=== PATIENT | female | born 2005 | race African-American/Black ===

== ENCOUNTER 2024-09-25 12:33 | Outpatient (CLI) | payer OTHER, SELFPAY ==
--- NOTE | ~2024-09-25 | MMUS_ITS ---
EXAMINATION: MM diagnostic hailey LT w jamal, US breast LT limited HISTORY: Left breast lump TECHNIQUE: 3-D tomosynthesis images of the left breast were performed and synthetic 2-D images were g enerated. CAD analysis was submitted and interpreted. High resolution limited left breast ultrasound was performed. COMPARISON: None BREAST PARENCHYMAL COMPOSITION:Dense: The breasts are extremely dense, which lowers the sensitivity o f mammography. FINDINGS: MAMMOGRAPHIC FINDINGS: No parenchymal abnormality left breast seen. No mass lesion or distortion seen. No suspicious mesente vani or calcification. ULTRASOUND: At the 9:00 left subareolar region, there is a 6 x 7 x 5 mm anechoic paravertebral circumferential cy st with posterior through transmission. No other sonographic abnormality seen. IMPRESSION: 7 mm simple cyst at the 9:00 left subareolar region. No evidence of malignancy. BI-RADS Category 2: Benign finding(s). Reviewed, dictated and finalized at location . IMPRESSION: 7 mm simple cyst at the 9:00 left subareolar region. No evidence of malignancy. BI-RADS Category 2: Benign finding(s).
--- OUTSIDE RECORDS SUMMARY | 2024-09-25 13:55 | XMS_ITS | Clinical Summary ---
Author Organization [facility] Address [address] [place] [id number] Care Team Providers Care Dross Puller Name Role Phone None, Provider Primary Care Provider Unavaila ble Allergies No known active allergies Medications No known medications Social History Tobacco Use Types Packs/Day Years Used Date Smoking Tobacco: Never Smokeless Tobacco: Never Tobacco Cessation:Counseling Given: Not Answered Alcohol Use Standard Drinks/Week Comments Yes 0 (1 standard drink = 0.6 oz pur e alcohol) Comments No Sex and Gender Information Value Date Recorded Sex Assigned at Not on file Legal Sex Female 8:07 PM CDT Gender Identity Not on file Sexual Orientation Not on file Last Filed Vital Signs Vital Sign Reading Time Taken Comments Blood Pressure 108/68 07/07/2023 5:57 PM 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 Pulse 87 07/07/2023 5:57 PM 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 Temperature 36.8 C (98.2 F) 07/07/2023 4:52 PM 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 Respiratory Rate 18 07/07/2023 4:52 PM 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 Oxygen Saturation 100% 07/07/2023 4:52 PM 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 Inhaled Oxygen Concentration - - Weight 52.2 kg (115 lb) 07/07/2023 5:04 PM 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 Height 160 cm (5' 3 ) 07/07/2023 5:04 PM 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 Body Mass Index 20.37 07/07/2023 5:04 PM 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 Plan of Treatment Health Maintenance Due Date Last Done Comments Cervical Cancer Screening Pap Smear (Age 21 to 29) Every 3 Years 2003 Cervical Cancer Screening 2003 Annual Physical 2006 HPV Vaccines (1 - 3-dose series) 2018 Meningococcal B Vaccine (1 of 2 - Standard) 2019 Hepatitis C 2021 COVID-19 Vaccine ( - 2024-25 season) 2024 Influenza Adult (#1) 2024 DTaP, Tdap and Td Vaccines (6 - Td or Tdap) 11/10/2024 11/10/2014, 02/23/2009, 10/21/2004, Additional history exists Hepatitis B Vaccines Completed 01/26/2004, 2003, 2003, Additional history exists Pneumococcal Vaccine: Pediatrics (0 to 5 Years) and At-Risk Patients (6 to 64 Years) Aged Out 01/26/2004, 2003 No longer eligibl e based on patient's age to complete this topic Meningococcal Vaccine Aged Out 11/10/2014 No leeanne maxx eligible based on patient's age to complete this topic RSV Immunizations Under 20 Months Aged Out No longer eligible based on patient's age to complete this topic Insurance [place] [id number] Care Teams Dross Puller Relationship Specialty Start Date End Date None, Provider, MD PCP - General UNKNOWN PHYSICIAN SPECIALTY 07/07/23
== END 2024-09-25 12:34 | disposition home or self-care (01) ==
LOC: ANHIMG 12:39
PROVIDERS: PCP Nurse Practitioner Family; Visit Provider Nurse Practitioner Family
DX: N64.4 Mastodynia (principal)
CPT/HCPCS: 76642; 77061; 77065; G0279